=== PATIENT | female | born 1945 | race Caucasian/White ===

== ENCOUNTER 2020-04-18 11:06 | Emergency (ER) | payer MEDICARE, OTHER ==
[~2020-04-18] VITALS: Ht 162.6 cm; Wt 66.6 kg
[2020-04-18] MEDS ORDERED: NORVASC10 MG PO (11:18)
[2020-04-18] MEDS ORDERED: LOTENSIN20 MG PO (11:19)
[2020-04-18] MEDS ORDERED: LUMIGAN2.5 M1 OPHTHALMIC (11:19)
[2020-04-18] MEDS ORDERED: LIPITOR 20 MG T20 M1 PO (11:19)
[2020-04-18] MEDS ORDERED: COQ-1030 MG PO (11:20)
[2020-04-18] MEDS ORDERED: PLAVIX 75 MG TA75 MG PO (11:20)
[2020-04-18] MEDS ORDERED: KLOR-CON 10 ER10 MEQ PO (11:21)
[2020-04-18] MEDS ORDERED: OCUVITE ADULT1 EAC1 PO (11:21)
[2020-04-18] MEDS ORDERED: COSOPT PF EYE1 EACH OTIC (11:21)
[2020-04-18] MEDS ORDERED: FISH OIL 1,0001 EAC9 PO (11:21)
[2020-04-18] MEDS ORDERED: HYDROCHLOROTHIA25 M1 PO (11:21)
[2020-04-18] MEDS ORDERED: OSTERA TABLET1 EAC1 PO (11:22)
[2020-04-18] MEDS ORDERED: PEPCID20 MG PO (11:22)
[2020-04-18 11:33] LABS: ABSOLUTE BASOPHILS 0.1 thou/uL (0.0-0.2); ABSOLUTE EOSINOPHILS 0.1 thou/uL (0.0-0.7); ABSOLUTE LYMPHOCYTES 2.1 thou/uL (0.8-5.3); BASOPHILS 0.8 %; HEMATOCRIT 48.4 % (37.0-47.0); HEMOGLOBIN 16.6 gm/dL (12.0-15.0); LYMPHOCYTES 14.5 %; MCH 32.5 pg (26.0-34.0); MCHC 34.2 g/dL (28.0-37.0); MCV 94.9 fL (80.0-100.0); MONOCYTES 6.8 %; MPV 8.1 fl. (7.2-11.1); NUCLEATED RBCS 0 /100WBC; PLATELET COUNT* 205 thou/uL (150-400); POLYS 76.9 %; RDW-CV 13.1 % (10.5-14.5); WBC 14.4 thou/uL (4.0-11.0)
[2020-04-18 11:39] LABS: CALCIUM 9.6 mg/dL (8.5-10.1); CREATININE 0.8 mg/dL (0.6-1.3); POTASSIUM 3.8 mmol/L (3.5-5.1)
[2020-04-18 11:42] LABS: PROTIME 10.9 Seconds (9.20-11.50)
[2020-04-18 11:44] LABS: ALBUMIN 4.2 g/dL (3.4-5.0); TOTAL BILIRUBIN 0.8 mg/dL (<0.1-1.0)
[2020-04-18 12:28] VITALS: BP 172/78
--- NOTE | 2020-04-18 15:15 | EKG ---
[place] [address] ELECTROCARDIOGRAM REPORT Name: RODO HANNAH Room: [facility]#: [id number] Admission: 04/18/20 Attend Phys: Discharge: 04/18/20 Date of : 43 Date of Service: 04/18/20 1115 Report #: [id number] THIS REPORT FOR: //name// [facility] ED Test Date: 2020-04-18 Test Time: 11:15:51 Pat Name: RODO HANNAH Department: Room: Gender: Clinical Research Physician: : [id number] Requested By: Ra Winchester Order Number: [id number] MD: Gennaro Mtz Measurements Intervals [place] Rate: 84 P: 63 VA: 149 QRS: -19 QRSD: 83 T: 22 QT: 351 QTc: 415 Interpretive Statements Sinus rhythm Probable left atrial enlargement Borderline left axis deviation Compared to ECG 12/29/2007 10:31:35 Sinus tachycardia no longer present ST (T wave) deviation has diminished Electronically Signed On 04-18-2020 15:15:21 [employer] by Gennaro Mtz [email or web address] <ELECTRONICALLY SIGNED> By: Gennaro Mtz MD, [facility] 04/18/20 1515 1115 1115 Gennaro Mtz MD, [facility] /EPI
== END 2020-04-18 12:28 | disposition home or self-care (01) ==
LOC: M.ERS 11:06
PROVIDERS: Family Medicine
DX: R20.2 Paresthesia of skin (principal); I10 Essential (primary) hypertension; E78.00 Pure hypercholesterolemia, unspecified; I25.10 Atherosclerotic heart disease of native coronary artery without angina pectoris; Z88.2 Allergy status to sulfonamides; Z85.3 Personal history of malignant neoplasm of breast; Z90.12 Acquired absence of left breast and nipple